=== PATIENT | female | born 1975 | race Caucasian/White ===

== ENCOUNTER 2018-03-27 16:08 | Emergency (ER) | payer OTHER, BC ==
[~2018-03-27] VITALS: Ht 167.6 cm; Wt 93.2 kg
[2018-03-27 16:16] VITALS: TEMP 99.3
[2018-03-27 17:19] VITALS: BP 126/78; PULSE 91
== END 2018-03-27 18:10 | disposition home or self-care (01) ==
LOC: COL.ER 16:08
DX: S70.12XA Contusion of left thigh, initial encounter (principal); V89.2XXA Person injured in unspecified motor-vehicle accident, traffic, initial encounter